=== PATIENT | female | born 1990 | race Caucasian/White ===

== ENCOUNTER 2023-10-20 06:19 | Day surgery (SDC) | payer OTHER, SELFPAY ==
[2023-10-17 08:51] LABS: % Basophils 0.6 % (0-2); % Eosinophils 1.9 % (0-6); % Immature Granulocytes 0.2 % (0-0.5); % Monocytes 5.7 % (1.7-9.3); % Neutrophils 54.6 % (42.2-75.2); Absolute Eosinophils 0.1 10^3/uL (0-0.7); Absolute Lymphocytes 1.9 10^3/uL (1.2-3.4); Absolute Monocytes 0.3 10^3/uL (0.1-0.6); Absolute Neutrophils 2.9 10^3/uL (1.4-6.5); Hematocrit 37.9 % (37.0-47.0); Hemoglobin 13.6 g/dL (12.0-16.0); Mean Corp Hgb Conc. 35.9 g/dL (33.0-37.0); Mean Corpuscular Hgb 30.4 pg (27.0-31.0); Mean Corpuscular Volume 84.6 fL (81.0-99.0); Mean Platelet Volume 9.3 fL (7.4-10.4); Nucleated Red Blood Cells % 0 %; Platelet Count 288 10^3/uL (130-400); Red Blood Cell Count 4.48 10^6/uL (4.20-5.40); Red Cell Dist. Width 12.3 % (11.5-14.5); White Blood Cell Count 5.2 10^3/uL (4.8-10.8)
[2023-10-17 08:59] LABS: HCG, Serum Qualitative Screen Negative
[2023-10-17 09:12] LABS: Blood Urea Nitrogen 12 mg/dl (7-17); Calcium 9.2 mg/dl (8.4-10.2); Carbon Dioxide 24 mmol/L (22-30); Chloride 105 mmol/L (98-107); Glucose 114 mg/dl (70-99); Sodium 136 mmol/L (135-145); eGFR > 60.00
[2023-10-17 13:41] VITALS: BMI 28.4
[2023-10-20] VITALS (7 sets, daily range): BP systolic 93–145; BP diastolic 55–102; BMI 28.4
[2023-10-20] MEDS: NORMOSOL-R 1000 IV (10:25)
[2023-10-20] MEDS: TYLENOL 1000 MG PO (11:38)
== END 2023-10-20 15:10 | disposition home or self-care (01) ==
LOC: SDS 06:19
PROVIDERS: ATTENDING PHYSICIAN Obstetrics & Gynecology; FAMILY PHYSICIAN Nurse Practitioner Family
DX: Z30.2 Encounter for sterilization (principal)
CPT/HCPCS: 58661; 88302; 36415; 80048; 84703; 85025; 86850; 86900; 86901

== ENCOUNTER 2025-06-18 05:53 | Day surgery (SDC) | payer BC, SELFPAY ==
[2025-06-18] VITALS (10 sets, daily range): BP systolic 117–147; BP diastolic 65–99; BMI 23.0
[2025-06-18] MEDS: TYLENOL 1000 MG PO (06:38)
[2025-06-18] MEDS: NORMOSOL-R/PLASMALYTE-A 1000 IV (06:39)
--- NOTE | 2025-06-18 11:51 | W.IMMPOSTOP ---
Surgical Immed Post Op Note
-
Primary Surgeon: Conor Arias MD
Assisting Surgeon: Reyes Sinclair pA-C
Pre-op Diagnosis: left knee anterior cruciate ligament tear, medial meniscus tear
Post-op Diagnosis: left knee anterior cruciate ligament tear
Procedure Performed: arthroscopic left knee anterior cruciat eligament reconstruction
Anesthesia Type: general with block
Specimen / Cultures: none
Estimated Blood Loss: 50mL
Complications: none apparent
Operative Findings: intact meniscus
Implants: Ar[employer]rex BTB Tightrope 2, 8x20mm PEEK screw; Gretel 2.7x30mm screw with washer
Operative dictation #: [id number]
[2025-06-18] MEDS: COMPAZINE 5 MG IV (13:47)
== END 2025-06-18 13:53 | disposition home or self-care (01) ==
LOC: SDS 05:53
PROVIDERS: ATTENDING PHYSICIAN Student in an Organized Health Care Education/Training Program
DX: S83.242A Other tear of medial meniscus, current injury, left knee, initial encounter (principal); S83.512A Sprain of anterior cruciate ligament of left knee, initial encounter; X50.1XXA Overexertion from prolonged static or awkward postures, initial encounter
CPT/HCPCS: 29888; C1713